=== PATIENT | male | born 1990 | race Two or more races ===

== ENCOUNTER 2024-05-02 23:38 | Emergency (ER) | payer OTHER ==
[2024-05-02 23:44] VITALS: BP 138/83; PULSE 94; RESP 16; TEMP 97.8; BMI 28.7
[2024-05-03] MEDS ORDERED: diazePAM 5 MG TABLET ONE (00:47)
[2024-05-03] MEDS ORDERED: KETOROLAC TROMETHAMINE 30 MG/1 ML VIAL ONE (00:48)
[2024-05-03] MEDS: diazePAM 5 MG TABLET PO ONE (00:49)
[2024-05-03] MEDS: KETOROLAC TROMETHAMINE 30 MG/1 ML VIAL IM ONE (00:52)
[2024-05-03 02:35] LABS: HIV INTERPRETATION NEGATIVE (NEGATIVE)
== END 2024-05-03 02:42 | disposition home or self-care (01) ==
LOC: JER 23:38
PROC: 3E0133Z Introduction of Anti-inflammatory into Subcutaneous Tissue, Percutaneous Approach (ICD-10-PCS; principal; 2024-05-03)
DX: M54.50 Low back pain, unspecified (principal); M79.662 Pain in left lower leg
CPT/HCPCS: 36415; 86803; 87389; 93971-TC; 99284-25

== ENCOUNTER 2024-05-28 04:09 | Day surgery (SDC) | payer OTHER ==
[2024-05-26 12:46] VITALS: BMI 28.7
[2024-05-28] MEDS ORDERED: ACETAMINOPHEN 500 MG TABLET (FP) PO PRN (08:47)
[2024-05-28 15:08] VITALS: RESP 18
[2024-05-28 15:41] VITALS: BP 119/78; PULSE 81; TEMP 97.1
== END 2024-05-28 15:37 | disposition home or self-care (01) ==
LOC: JASU-SURG 04:09
PROVIDERS: ATTEND Pain Medicine Pain Medicine
PROC: 3E0R3BZ Introduction of Anesthetic Agent into Spinal Canal, Percutaneous Approach (ICD-10-PCS; 2024-05-28)
PROC: 3E0R33Z Introduction of Anti-inflammatory into Spinal Canal, Percutaneous Approach (ICD-10-PCS; principal; 2024-05-28 14:32)
DX: M54.16 Radiculopathy, lumbar region (principal)
CPT/HCPCS: 76000-TC-FY

== ENCOUNTER 2024-07-03 04:36 | Day surgery (SDC) | payer OTHER ==
[2024-07-02 10:15] VITALS: BMI 28.7
[2024-07-03] MEDS ORDERED: ACETAMINOPHEN 500 MG TABLET (FP) PO PRN (09:02)
[2024-07-03 11:13] VITALS: TEMP 97.3
[2024-07-03] MEDS ORDERED: DEXAMETHASONE SOD PHOSPHATE 10 MG/1 ML VIAL ONE (12:09)
[2024-07-03] MEDS ORDERED: LIDOCAINE HCL/PF 1% SDV 5ML VIAL ONE (12:09)
[2024-07-03] MEDS: IOHEXOL 180 MG/1 ML ML IJ ONE (12:16)
[2024-07-03] MEDS: DEXAMETHASONE SOD PHOSPHATE 10 MG/1 ML VIAL IM ONE (12:16)
[2024-07-03] MEDS: LIDOCAINE 1% P/F 10 MG/ML VIAL INF ONE (12:18)
[2024-07-03 13:50] VITALS: BP 117/72; PULSE 74; RESP 20
== END 2024-07-03 13:10 | disposition home or self-care (01) ==
LOC: JASU-SURG 04:36
PROVIDERS: ATTEND Pain Medicine Pain Medicine
PROC: 3E0R3BZ Introduction of Anesthetic Agent into Spinal Canal, Percutaneous Approach (ICD-10-PCS; 2024-07-03)
PROC: 3E0R33Z Introduction of Anti-inflammatory into Spinal Canal, Percutaneous Approach (ICD-10-PCS; principal; 2024-07-03 12:30)
DX: M54.16 Radiculopathy, lumbar region (principal)
CPT/HCPCS: 76000-TC-FY; J1100

== ENCOUNTER 2024-11-13 06:45 | Day surgery (SDC) | payer OTHER ==
[2024-11-11 12:27] VITALS: BMI 28.7
[2024-11-13] MEDS ORDERED: ACETAMINOPHEN 500 MG TABLET (FP) PO PRN (09:03)
[2024-11-13] MEDS: BUPIVACAINE HCL/PF 0.75% 10 ML VIAL NR ONE ×3 (09:44)
[2024-11-13] MEDS: LIDOCAINE HCL 1% PRESERVATIVE FREE - 30ML VIAL IJ ONE ×3 (09:44)
[2024-11-13 10:09] VITALS: BP 123/72; PULSE 84; RESP 20; TEMP 97.3
== END 2024-11-13 10:05 | disposition home or self-care (01) ==
LOC: JASU-SURG 06:45
PROVIDERS: ATTEND Pain Medicine Pain Medicine
PROC: 3E0T33Z Introduction of Anti-inflammatory into Peripheral Nerves and Plexi, Percutaneous Approach (ICD-10-PCS; 2024-11-13)
PROC: 3E0T3BZ Introduction of Anesthetic Agent into Peripheral Nerves and Plexi, Percutaneous Approach (ICD-10-PCS; principal; 2024-11-13 10:00)
DX: M47.816 Spondylosis without myelopathy or radiculopathy, lumbar region (principal)
CPT/HCPCS: 76000-TC-FY

== ENCOUNTER 2025-01-21 05:37 | Day surgery (SDC) | payer OTHER ==
[2025-01-21] MEDS ORDERED: ACETAMINOPHEN 500 MG TABLET (FP) PO PRN (08:55)
[2025-01-21] MEDS ORDERED: DEXAMETHASONE SOD PHOSPHATE 10 MG/1 ML VIAL ONE (09:00)
[2025-01-21 14:23] VITALS: BP 111/69; PULSE 70; RESP 20; TEMP 97.5
== END 2025-01-21 14:39 | disposition home or self-care (01) ==
LOC: JASU-SURG 05:37
PROVIDERS: ATTEND Pain Medicine Pain Medicine
PROC: 015B3ZZ Destruction of Lumbar Nerve, Percutaneous Approach (ICD-10-PCS; principal; 2025-01-21 13:00)
DX: M47.816 Spondylosis without myelopathy or radiculopathy, lumbar region (principal)
CPT/HCPCS: 76000-TC-FY; J1100